=== PATIENT | female | born 1940 | race Asian ===

== ENCOUNTER 2018-11-20 17:52 | Inpatient (IN) | payer MEDICARE, MEDICAID ==
--- NOTE | 2018-11-20 18:02 | ED Physician Chart ---
ED Chief Complaint/HPI - Patient Information Date Seen:: 11/20/18 Time Seen:: 17:40 Chief Complaint:: Weakness History of Present Illness:: onset x 3 days of poor appetite, weakness, and failure to thrive; no report of trauma, H/As, neck pain, cough, C/P, SOB, Abd. Pain, N/V/D/C, fever, chills, or urinary s/s Historian:: Patient, EMS Review:: Nurse's Note Reviewed, Old Chart Reviewed, EMS run form Reviewed <Gui Verdin - Last Filed: 11/20/18 18:59> - Patient Information Allergies:: Allergies Allergy/AdvReac Type Severity Reaction Status Date / Time No Known Allergies Allergy Verified 11/20/18 18:06 Vitals:: Vital Signs - 8 hr 11/20/18 18:07 Temp 98.6 F HR 101 RR 19 BP 184/79 O2 Sat % 97 <Eduardo Vela - Last Filed: 11/20/18 20:10> ED Review of Systems - Review of Systems General/Constitutional: No fever, No chills, No weight loss, Weakness, No diaphoresis, No edema, No loss of appetite Skin: No skin lesions, No rash, No bruising Head: No headache, No light-headedness Eyes: No loss of vision, No pain, No diplopia ENT: No earache, No nasal drainage, No sore throat, No tinnitus Neck: No neck pain, No swelling, No thyromegaly, No stiffness, No mass noted Cardio Vascular: No chest pain, No palpitations, No PND, No orthopnea, No edema Pulmonary: No SOB, No cough, No sputum, No wheezing GI: No nausea, No vomiting, No diarrhea, No pain, No melena, No hematochezia, No constipation, No hematemesis G/U: No dysuria, No frequency, No hematuria, No nacturia [employer]: No vaginal discharge, No abnormal vaginal bleed, No contraction Musculoskeletal: No bone or joint pain, No back pain, No muscle pain Endocrine: No polyuria, No polydipsia Psychiatric: Prior psych history, No depression, Anxiety, No suicidal ideation, No homicidal ideation, No auditory hallucination, No visual hallucination Hematopoietic: No bruising, No lymphadenopathy Allergic/Immuno: No urticaria, No angioedema Neurological: No syncope, No focal symptoms, No weakness, No paresthesia, No headache, No seizure, No dizziness, Confusion, No vertigo <Gui Verdin - Last Filed: 11/20/18 18:59> ED Past Medical History - Past Medical History Obtainable: Yes Past Medical History: HTN, CVA/TIA, Dyslipidemia, PUD/GERD, Seizures, Dementia Family History: HTN Social History: Non Smoker, No Alcohol, No Drug Use, , Care Facility Surgical History: None Psychiatricy History: Schizophrenia, Dementia Medication: Reviewed <Gui Verdin - Last Filed: 11/20/18 18:59> ED Physical Exam - Physical Examination General/Constitutional: Awake, Well-developed, well-nourished, Alert, No distress, GCS 15, Non-toxic appearing, Ambulatory Head: Atraumatic Eyes: Lids, conjuctiva normal, PERRL, EOMI Skin: Nl inspection, No rash, No skin lesions, No ecchymosis, Well hydrated, No lymphadenopathy ENMT: External ears, nose nl, TM canals nl, Nasal exam nl, Lips, teeth, gums nl , Oropharynx nl, Tonsils nl Neck: Nontender, Full ROM w/o pain, No JVD, No nuchal rigidity, No bruit, No mass, No stridor Respiratory: Nl effort/Exclusion, Clear to Auscultation, No Wheeze/Rhonchi/Rales Cardio Vascular: RRR, No murmur, gallop, rubs, NL S1 S2, Carotid/Femoral/Distal pulses equal bilaterally GI: No tenderness/rebounding/guarding, No organomegaly, No hernia, Normal BS's, Nondistended, No mass/bruits, No McBurney tenderness : No CVA tenderness Extremities: No tenderness or effusion, Full ROM, normal strength in all extremities, No edema, Normal digits & nails Neuro/Psych: Alert/oriented, DTR's symmetric, Normal sensory exam, Normal motor strength, Judgement/insight normal, Mood normal, Normal gait, No focal deficits Misc: Normal back, No paraspinal tenderness <Gui Verdin - Last Filed: 11/20/18 18:59> ED Labs/Radiology/EKG Results - Lab Results Comments:: Reviewed - Radiology Results Comments:: CXR: NAD - EKG Interpretations EKG Time:: 18:15 Rate & Rhythm: 90; NSR Comments:: non-specific st-t changes <Gui Verdin - Last Filed: 11/20/18 18:59> - Lab Results Results: Laboratory Tests 11/20/18 11/20/18 11/20/18 18:15 18:15 18:15 PT 8.9 L INR < 0.50 L PTT (Actin FS) 23.1 L Sodium 140 Potassium 3.3 L Chloride 104 Carbon Dioxide 24.6 Anion Gap 14.7 BUN 25 Creatinine 0.7 Est GFR ( Amer) TNP Est GFR (Non-Af Amer) TNP BUN/Creatinine Ratio 35.7 Glucose 140 H Whole Bld Lactic Acid 2.20 H* Calcium 9.8 Total Bilirubin 0.5 AST 15 ALT 14 Alkaline Phosphatase 111 H Creatine Kinase 27 L Troponin I < 0.01 L Total Protein 7.3 Albumin 4.2 Globulin 3.1 Albumin/Globulin Ratio 1.4 Amylase 62 Lipase 30 Comments:: Abnormal Lab Results 11/20/18 11/20/18 11/20/18 18:15 18:15 18:15 PT 8.9 L INR < 0.50 L PTT (Actin FS) 23.1 L Sodium 140 Potassium 3.3 L Chloride 104 Carbon Dioxide 24.6 Anion Gap 14.7 BUN 25 Creatinine 0.7 Est GFR ( Amer) TNP Est GFR (Non-Af Amer) TNP BUN/Creatinine Ratio 35.7 Glucose 140 H Whole Bld Lactic Acid 2.20 H* Calcium 9.8 Total Bilirubin 0.5 AST 15 ALT 14 Alkaline Phosphatase 111 H Creatine Kinase 27 L Troponin I < 0.01 L Total Protein 7.3 Albumin 4.2 Globulin 3.1 Albumin/Globulin Ratio 1.4 Amylase 62 Lipase 30 - EKG Interpretations [place]: left axis no ectopy noted <Eduardo Vela - Last Filed: 11/20/18 20:10> ED Assessment - Assessment General Assessment: failure to thrive <Eduardo Vela - Last Filed: 11/20/18 20:10> ED Septic Shock - . Is Septic Shock (SBP<90, OR Lactate>4 mmol\L) present?: No <Gui Verdin - Last Filed: 11/20/18 18:59> - <6hrs of presentation: Vital Signs: Vital Signs - 8 hr 11/20/18 18:07 Temp 98.6 F HR 101 RR 19 BP 184/79 O2 Sat % 97 <Eduardo Vela - Last Filed: 11/20/18 20:10> ED Reassessment (Disposition) - Reassessment Reassessment Condition:: Improved - Diagnosis Diagnosis:: Failure to Thrive; Anorexia; Poor Oral Intake; Weakness; Elevated Lactic Acid; Lactic Acidosis; Hypokalemia; Hyperglycemia <Gui Verdin - Last Filed: 11/20/18 18:59> - Diagnosis Diagnosis:: failure to thrive elevated lactic acid hypokalemia - Patient Disposition Discharge/Transfer:: Acute Care w/in this hosp Admitting Medical Physician:: Austin Church Condition at Disposition:: Improved <Eduardo Vela - Last Filed: 11/20/18 20:10>
[2018-11-20] MEDS ORDERED: Sodium Chloride 0.9% 1,000 ML IV ONE ×2 (18:07→23:15)
[2018-11-20 18:53] LABS: ALB/GLOB RATIO 1.4 (1.0-1.8); ALBUMIN 4.2 gm/dL (3.7-5.3); ALKALINE PHOSPHATASE 111 U/L (34-104); AMYLASE SERUM 62 U/L (29-103); ANION GAP 14.7 (7.0-16.0); BILIRUBIN,TOTAL 0.5 mg/dL (0.3-1.0); BUN - UREA NITROGEN 25 mg/dL (7-25); CALCIUM SERUM 9.8 mg/dL (8.6-10.3); CARBON DIOXIDE 24.6 mEq/L (21.0-31.0); CHLORIDE 104 mEq/L (98-107); CREATININE - SERUM 0.7 mg/dL (0.6-1.2); CREATININE KINASE 27 U/L (30-223); GLUCOSE 140 mg/dL (70-105); LIPASE 30 U/L (11-82); POTASSIUM SERUM 3.3 mEq/L (3.5-5.1); SGOT 15 U/L (13-39); SGPT/ALT 14 U/L (7-52); SODIUM SERUM 140 mEq/L (136-145); TOTAL PROTEIN,SERUM 7.3 gm/dL (6.0-8.3)
[2018-11-20] MEDS ORDERED: Potassium Chloride 20 mEq ER Tab PO ONE ×2 (19:01→19:21)
[2018-11-20 19:05] LABS: INR < 0.50 (0.5-1.4)
[2018-11-20] MEDS ORDERED: Potassium Chloride Elixir 20 mEq /15 mL UDC PO ONE (19:25)
[2018-11-20] MEDS ORDERED: Potassium Chloride Elixir 20 mEq /15 mL UDC ONE (19:26)
[2018-11-20] MEDS ORDERED: cefTRIAXone 1 GM in Sodium Chloride 0.9% 50 ML IV SCH (21:00)
[2018-11-20 22:06] LABS: HEMATOCRIT 29.4 % (41.0-60); HEMOGLOBIN 10.9 gm/dL (12-16); MEAN CELL VOLUME 96.5 fl (81-100); MEAN CORPUSCULAR HEMOGLOBIN 35.7 pg (27.0-31.0); RED BLOOD COUNT 3.04 Mil/cmm (3.80-5.20); RED CELL DISTRIBUTION WIDTH 16.4 % (11.5-20.0); WHITE BLOOD COUNT 7.2 Th/cmm (4.8-10.8)
[2018-11-20 22:07] LABS: % LYMPHOCYTES 22.3 % (20.0-50.0); % NEUTROPHILS 70.2 % (40.0-80.0); PLATELET COUNT 345 Th/cmm (150-400)
[2018-11-20 22:09] LABS: % BASOPHILS 0.5 % (0.0-2.0); % EOSINOPHILS 2.1 % (0.0-5.0); % MONOCYTES 4.9 % (2.0-10.0); LYMPHOCYTE ABSOLUTE 1.6 Th/cmm (1.5-3.0); MONOCYTE ABSOLUTE 0.4 Th/cmm (0.3-1.0)
[2018-11-20 22:10] LABS: EOSINOPHILE ABSOLUTE 0.1 Th/cmm (0.1-0.4)
[2018-11-20] MEDS: cefTRIAXone 1 GM in Sodium Chloride 0.9% 50 ML IV SCH (22:40)
[2018-11-20] MEDS: Sodium Chloride 0.45% 1,000 ML IV SCH (22:41)
[2018-11-20 23:28] VITALS: BP 148/98
[2018-11-21 05:25] LABS: URINE SOURCE CATH
[2018-11-21 05:45] LABS: URINE BILIRUBIN NEGATIVE (NEGATIVE); URINE BLOOD NEGATIVE (NEGATIVE); URINE GLUCOSE (UA) NEGATIVE (NEGATIVE); URINE KETONE NEGATIVE (NEGATIVE); URINE LEUKOCYTE ESTERASE NEGATIVE (NEGATIVE); URINE NITRATE NEGATIVE (NEGATIVE); URINE PH 6.5 (4.6 - 8.0); URINE PROTEIN NEGATIVE (NEGATIVE); URINE UROBILINOGEN 0.2 E.U./dL (0.2 - 1.0)
[2018-11-21 05:55] LABS: URINE CLARITY CLEAR (CLEAR); URINE COLOR YELLOW; URINE MICROSCOPIC INDICATED? NO
[2018-11-21] MEDS ORDERED: Non-Formulary Item 1 EA (Glucagon,Human Recombinant [Glucagon Emergency Kit] 1 MG) IJ PRN (08:34)
[2018-11-21] MEDS ORDERED: Magnesium Hydroxide (MOM) 30 mL UDC PO PRN (08:34)
[2018-11-21] MEDS: Sodium Chloride 0.45% 1,000 ML IV SCH ×2 (08:44→17:57)
[2018-11-21] MEDS ORDERED: Non-Formulary Item 1 EA (Acetaminophen [Tylenol] 650 MG) PO SCH (09:00)
[2018-11-21] MEDS ORDERED: GLUCAGON HCl 1 MG KIT IM PRN (09:03)
--- NOTE | 2018-11-21 09:23 | Diagnostic Imaging Report ---
CHEST X-RAY: AP view INDICATION: pain COMPARISON: None FINDINGS: Small left effusion is seen with left basal atelectasis versus infiltrate. Suboptimal lung volumes are noted. Chronic changes are noted. Heart size normal. Atherosclerosis is noted. Degenerative changes of the spine are noted. IMPRESSION: Small left effusion with left basal atelectasis versus focal infiltrate. Atherosclerotic vascular disease.
--- NOTE | 2018-11-21 09:37 | History & Physical ---
ADMIT DATE: 11/21/2018 CHIEF COMPLAINT: Weakness and failure to thrive. HISTORY OF PRESENT ILLNESS: This is a 78-year-old female who was admitted from a fpc facility to [facility] Emergency Room due to weakness and failure to thrive. From Emergency Room, the patient was noted to have elevated acidosis level and also with urinary tract infection, hence the patient was admitted to Med/Surg Unit for further management. REVIEW OF SYSTEMS: GENERAL: This is a 78-year-old female. No fever, positive weakness. HEAD: No headache. No dizziness. EYES: No eye pain or blurring of vision. NECK: No neck pain or nuchal rigidity. CHEST: No chest pain or palpitation. PULMONARY: No coughing. No shortness of breath. GASTROINTESTINAL: No abdominal pain, no constipation, no diarrhea. MUSCULOSKELETAL: No joint pain. No muscle pain. SOCIAL HISTORY: The patient lives in a fpc facility prior to hospitalization. PAST MEDICAL HISTORY: Includes diabetes, osteoarthritis and dementia. FAMILY HISTORY: Unremarkable. PAST SURGICAL HISTORY: Unremarkable. PHYSICAL EXAMINATION: VITAL SIGNS: Temperature 96.6, heart rate 61, blood pressure 116/69, respirations 18, 97% on room air. GENERAL: This is a 78-year-old female that appears as stated in no acute distress. HEENT: Head is atraumatic and normocephalic. Eyes: Bilateral conjunctivae are clear. Bilateral pupils are equally round and reactive. NECK: Supple. No JVD. CARDIOVASCULAR: S1 and S2, without murmur. PULMONARY: Clear to auscultation. GASTROINTESTINAL: Soft and nontender without guarding. Positive bowel sounds. MUSCULOSKELETAL: No clubbing. No cyanosis noted. ASSESSMENT: 1. Failure to thrive. 2. Lactic acidosis. 3. Urinary tract infection. 4. Diabetes. PLAN: We will admit the patient to Med/Surg Unit. We will do medication reconciliation accordingly. We will do a swallow evaluation. We will consult with ID doctor and the neurologist. Treatment plans were discussed with the patient's nurse. Treatment plans were discussed with Dr. Church. JOB# [id number]
[2018-11-21] MEDS: Aspirin 81mg Chewable Tab PO SCH (09:40)
[2018-11-21] MEDS: INSULIN LISPRO SLIDING SCALE 100 UNITS/ML UNIT SUBQ SCH (09:44)
[2018-11-21] MEDS: cefTRIAXone 1 GM in Sodium Chloride 0.9% 50 ML IV SCH (20:14)
[2018-11-22] MEDS: Sodium Chloride 0.45% 1,000 ML IV SCH ×3 (03:57→23:18)
[2018-11-22] MEDS: Aspirin 81mg Chewable Tab PO SCH ×2 (09:04→09:59)
[2018-11-22] MEDS: INSULIN LISPRO SLIDING SCALE 100 UNITS/ML UNIT SUBQ SCH (09:05)
--- NOTE | 2018-11-22 10:06 | Internal Medicine Prog Note ---
Internal Medicine Subjective - Subjective Patient seen and examined:: with staff Patient is:: asleep, non-interactive, arousable, in bed Per staff patient has:: no adverse event, no episodes of fall Internal Medicine Objective - Results Result Diagrams: 11/20/18 18:15 11/20/18 18:15 Recent Labs: Laboratory Last Values WBC 7.2 Th/cmm (4.8-10.8) 11/20/18 18:15 RBC 3.04 Mil/cmm (3.80-5.20) L 11/20/18 18:15 Hgb 10.9 gm/dL (12-16) L 11/20/18 18:15 Hct 29.4 % (41.0-60) L 11/20/18 18:15 MCV 96.5 fl (81-100) 11/20/18 18:15 MCH 35.7 pg (27.0-31.0) H 11/20/18 18:15 MCHC Differential 37.0 pg (28.0-36.0) H 11/20/18 18:15 RDW 16.4 % (11.5-20.0) 11/20/18 18:15 Plt Count 345 Th/cmm (150-400) 11/20/18 18:15 MPV 7.7 fl 11/20/18 18:15 Neutrophils % 70.2 % (40.0-80.0) 11/20/18 18:15 Lymphocytes % 22.3 % (20.0-50.0) 11/20/18 18:15 Monocytes % 4.9 % (2.0-10.0) 11/20/18 18:15 Eosinophils % 2.1 % (0.0-5.0) 11/20/18 18:15 Basophils % 0.5 % (0.0-2.0) 11/20/18 18:15 PT 8.9 SECONDS (9.5-11.5) L 11/20/18 18:15 INR < 0.50 (0.5-1.4) L 11/20/18 18:15 PTT (Actin FS) 23.1 SECONDS (26.0-38.0) L 11/20/18 18:15 Sodium 140 mEq/L (136-145) 11/20/18 18:15 Potassium 3.3 mEq/L (3.5-5.1) L 11/20/18 18:15 Chloride 104 mEq/L (98-107) 11/20/18 18:15 Carbon Dioxide 24.6 mEq/L (21.0-31.0) 11/20/18 18:15 Anion Gap 14.7 (7.0-16.0) 11/20/18 18:15 BUN 25 mg/dL (7-25) 11/20/18 18:15 Creatinine 0.7 mg/dL (0.6-1.2) 11/20/18 18:15 Est GFR ( Amer) TNP 11/20/18 18:15 Est GFR (Non-Af Amer) TNP 11/20/18 18:15 BUN/Creatinine Ratio 35.7 11/20/18 18:15 Glucose 140 mg/dL (70-105) H 11/20/18 18:15 POC Glucose 123 MG/DL (70 - 105) H 11/22/18 07:41 Whole Bld Lactic Acid 3.05 mmol/L (0.60-1.99) H* 11/20/18 21:11 Calcium 9.8 mg/dL (8.6-10.3) 11/20/18 18:15 Total Bilirubin 0.5 mg/dL (0.3-1.0) 11/20/18 18:15 AST 15 U/L (13-39) 11/20/18 18:15 ALT 14 U/L (7-52) 11/20/18 18:15 Alkaline Phosphatase 111 U/L (34-104) H 11/20/18 18:15 Creatine Kinase 27 U/L (30-223) L 11/20/18 18:15 Troponin I < 0.01 ng/mL (0.01-0.05) L 11/20/18 18:15 Total Protein 7.3 gm/dL (6.0-8.3) 11/20/18 18:15 Albumin 4.2 gm/dL (3.7-5.3) 11/20/18 18:15 Globulin 3.1 gm/dL 11/20/18 18:15 Albumin/Globulin Ratio 1.4 (1.0-1.8) 11/20/18 18:15 Amylase 62 U/L (29-103) 11/20/18 18:15 Lipase 30 U/L (11-82) 11/20/18 18:15 Urine Source CATH 11/21/18 04:45 Urine Color YELLOW 11/21/18 04:45 Urine Clarity CLEAR (CLEAR) 11/21/18 04:45 Urine pH 6.5 (4.6 - 8.0) 11/21/18 04:45 Ur Specific [place] 1.010 (1.005-1.030) 11/21/18 04:45 Urine Protein NEGATIVE mg/dL (NEGATIVE) 11/21/18 04:45 Urine Glucose (UA) NEGATIVE mg/dL (NEGATIVE) 11/21/18 04:45 Urine Ketones NEGATIVE mg/dL (NEGATIVE) 11/21/18 04:45 Urine Blood NEGATIVE (NEGATIVE) 11/21/18 04:45 Urine Nitrate NEGATIVE (NEGATIVE) 11/21/18 04:45 Urine Bilirubin NEGATIVE (NEGATIVE) 11/21/18 04:45 Urine Urobilinogen 0.2 E.U./dL (0.2 - 1.0) 11/21/18 04:45 Ur Leukocyte Esterase NEGATIVE (NEGATIVE) 11/21/18 04:45 - Physical Exam Vitals and I&O: Vital Signs Temp 98 F 11/22/18 04:03 Pulse 78 11/22/18 04:03 Resp 18 11/22/18 04:03 BP 184/92 11/22/18 04:03 Pulse Ox 99 11/22/18 04:03 Intake & Output 11/21/18 11/22/18 11/22/18 18:59 06:59 18:59 Intake Total 3621.667 1200 Balance 3621.667 1200 Weight (lbs) 116 lb 116 lb Intake: Intake, IV Amount 2921.667 1050 Sodium Chloride 0.45% 1, 1928.206 6197 000 ml @ 100 mls/hr IV . Q10H [facility] Rx#:[id number] cefTRIAXone 1 gm In 50 Sodium Chloride 0.9% 50 ml @ 100 mls/hr IV DAILY@ 2100 [facility] Rx#:[id number] Oral 700 150 Other: # Voids 3 3 Weight Source Bedscale Bedscale Active Medications: Current Medications Acetaminophen (Tylenol) 650 mg PO DAILY [facility] Stop: 01/20/19 09:04 Last Admin: 11/22/18 09:59 Dose: Not Given Aspirin (Aspirin Chewable) 81 mg PO DAILY [facility] Stop: 01/20/19 08:59 Last Admin: 11/22/18 09:59 Dose: Not Given Bisacodyl (Dulcolax 10 Mg Supp) 10 mg RC DAILY PRN PRN Reason: IF MOM INEFFECTIVE Stop: 01/20/19 08:33 Docusate Sodium (Colace) 100 mg PO BID PRN PRN Reason: Constipation Stop: 01/20/19 08:33 Glucagon (Glucagen) 1 mg IM PRN PRN PRN Reason: HYPOGLYCEMIA Stop: 01/20/19 09:02 Sodium Chloride (Nacl 0.45%) 1,000 mls @ 100 mls/hr IV .Q10H [facility] Stop: 01/19/19 22:12 Last Admin: 11/22/18 03:57 Dose: 100 mls/hr Ceftriaxone Sodium 1 gm/ (Sodium Chloride) 50 mls @ 100 mls/hr IV DAILY@2100 [facility] Stop: 01/19/19 22:14 Last Infusion: 11/21/18 20:44 Dose: Infused Insulin Human Lispro (Humalog Insulin Sliding Scale) 0 units SUBQ DAILY [facility]; Protocol Stop: 01/20/19 08:59 Last Admin: 11/22/18 09:05 Dose: Not Given Magnesium Hydroxide (Milk Of Magnesia) 30 ml PO HS PRN PRN Reason: GI DISTRESS Stop: 01/20/19 08:33 Metformin HCl (Glucophage) 500 mg PO TID [facility] Stop: 01/20/19 08:59 Last Admin: 11/22/18 09:59 Dose: Not Given Valproate Sodium (Depakene) 250 mg PO DAILY [facility]; Protocol Stop: 01/20/19 08:59 Last Admin: 11/22/18 10:00 Dose: Not Given General: weak, NAD HEENT: NC/AT, other Neck: Supple, No JVD Lungs: CTAB Cardiovascular: RRR, Normal S1, Normal S2 Abdomen: soft, non-tender, tender Internal Medicine Assmt/Plan - Assessment Assessment: Weakness FTT DM R/O UTI - clean UA HTN CVA/TIA Dyslipidemia PUD/GERD Seizures Dementia Schizophrenia - Plan Plan: Continue current treatment plan. Monitor Labs.Continue current medications Continue to monitor VS Monitor Diet/Nutritional support. Pain Management. PT/OT prn Safety precaution, Fall precaution, frequent nursing round. Supportive care. Continue collaborating with consulting specialists, case management and nursing team. F/U CT Scan Head- pt refused previously F/U ID and Neurology recs. Disposition: possible discharge today. Nutritional Asmnt/Malnutr-PDOC - Dietary Evaluation Malnutrition Findings (Please click <Entered> for more info): Nutritional Asmnt/Malnutrition Start: 11/21/18 10: 06 Text: Status: Complete Freq: Protocol: Document 11/21/18 10:10 MMETHAN (Rec: 11/21/18 10:28 [id number] [email or web address] [email or web address]) Nutritional Asmnt/Malnutrition Patient General Information Nutritional Screening High Risk Consult Diagnosis Failure to thrive, elevated lactic acid, hypokalemia Pertinent Medical Hx/Surgical Hx diabetes, osteoarthritis, dementia Subjective Information Dietary Consult received for " No appetite to eat, diabetic". Patient was admitted from SNF due to weakness and failure to thrive. Primary language Cantonese. Patient refusing some meals, but ate breafkast today without difficulty, per RN note. In bed at time of visit; nutrition education not appropriate at this time. Current Diet Order/ Nutrition Support 60 gm [facility] Patient / S.O Not Indicated Pertinent Medications dulcolax, colace, glucagon, humalog, MOM, Metformin Pertinent Labs (11/20) K 3.3 Nutritional Hx/Data Height 5 ft 1 in Height (Calculated Centimeters) 154.9 Current Weight (lbs) 116 lb Weight (Calculated Kilograms) 52.6 Weight (Calculated Grams) 02576.7 [place] Body Weight 112 % [place] Body Weight 103 Body Mass Index (BMI) 21.9 Recent Weight Change No Weight Status Approriate GI Symptoms GI Symptoms None Difficult in: None Food Allergies No Cultural/Ethnic/P[employer]al Belief none indicated Usual diet at home unknown Skin Integrity/Comment: Heri 14, Bilateral lower buttocks black discoloration Current %PO Negligible < 25% Estimated Nutritional Goals BEE in Kcals: Using Current wt Calories/Kcals/Kg 52.7kg CBW Kcals Calculated ~1912-1931 kcal/day (25-30 kcal/kg) Protein: Using Current wt Protein g/k-1.2 gm/kg Protein Calculated ~50-65 gm/day Fluid: ml ~2169-3268 ml/day (1 ml/kcal) Nutritional Problem 1. Problem Problem Inadequate oral intake related to Etiology possible poor appetite, refusing meals aeb Signs/Symptoms: PO <25% of meals Intervention/Recommendation Comments 1. Continue 60 gm CCHO diet as tolerated by patient. 2. Encourage oral intake of meals. 3. Add Glucerna TID to supplement calories/protein due to FTT. Expected Outcomes/Goals Expected Outcomes/Goals Oral intake >75% if meals, weight stable, nutrition related labs WNL F/U MR 11/24-
--- NOTE | 2018-11-22 17:01 | Consultation ---
DATE OF CONSULTATION: 11/22/2018 INFECTIOUS DISEASE CONSULTATION REFERRING PHYSICIAN: Dr. Church. REASON FOR CONSULTATION: Lactic acidosis. HISTORY OF PRESENT ILLNESS: The patient is a 78-year-old female with a past medical history of dementia, hypertension, CVA, dyslipidemia, peptic ulcer disease, GERD, seizure disorder, brought in from nursing facility for poor appetite of 3 days. It was associated with generalized weakness and failure to thrive. On initial evaluation, the patient's temperature was 98.6 degrees Fahrenheit and WBC count was 7200. Lactic acid was 2.2. Sepsis workup was performed and chest x-ray showed small left effusion with left basilar atelectasis versus focal infiltrate. The patient was started on IV fluid. ID consult was called for the antibiotic management. PAST MEDICAL HISTORY: As mentioned above, dementia, hyperlipidemia, diabetes mellitus type 2, hypertension, osteoarthritis, seizure disorder. SOCIAL HISTORY: The patient lives in a nursing facility. No history of smoking, alcohol or drug use. FAMILY HISTORY: Unremarkable. PAST SURGICAL HISTORY: Unknown. IMMUNIZATION STATUS: Unknown. REVIEW OF SYSTEMS: The patient unable to give any appropriate history. Otherwise, she says she is fine. GENERAL: The patient has no fever, no chills. HEENT: No diplopia, no photophobia, no sore throat. RESPIRATORY: No cough, no shortness of breath. CARDIOVASCULAR: No chest pain or palpitation. GASTROINTESTINAL: No nausea, no vomiting, no diarrhea, no constipation. GENITOURINARY: No dysuria. NEUROLOGICAL: No headache, no dizziness, no focal weakness. ALLERGIES: NKDA. MEDICATIONS: Per medication reconciliation sheet. Antibiotic taylor, the patient is receiving Rocephin. PHYSICAL EXAMINATION: CURRENT VITAL SIGNS: Shows temperature is 96.9, pulse 82, respiration 18, blood pressure 167/79, oxygen saturation 97%. GENERAL: The patient is comfortable, lying in bed, not in acute distress. HEENT: Head is normocephalic, atraumatic. Oral cavity moist, pink tongue. EYES: No pallor, no icterus. Pupils PERRLA, EOMI. NECK: Supple, no JVD, no carotid bruit. Trachea in midline. CHEST: Bilateral breath sounds. No crackles or wheezing. Decreased breath sounds. HEART: S1, S2 within normal limits. Regular rhythm. No murmur, no gallop. ABDOMEN: Soft, nontender, nondistended. Bowel sounds present. EXTREMITIES: No cyanosis, no clubbing, no edema. NEUROLOGIC: Alert, awake, oriented x 3. No focal deficits. LABORATORY DATA: WBC count 7200, hemoglobin 10.9, hematocrit 29.4, platelets are 345,000, neutrophils 70%. Sodium is 140, potassium 3.3, chloride 104, bicarbonate is 25, BUN is 25, creatinine 0.7, glucose is 140. Urinalysis, negative nitrite, negative leukoesterase. INR is less than 0.5. Blood culture 2 sets are negative. MRSA screen is negative. Chest x-ray shows small left pleural effusion with left basilar atelectasis versus focal infiltrate. IMPRESSION: 1. Lactic acidosis, most likely metformin is issue and dehydration because of loss of appetite. 2. Left lower lobe pneumonia. 3. Dementia. 4. Hypertension. 5. Hyperlipidemia. 6. Mild anemia. RECOMMENDATIONS: Continue IV fluid support. Discontinue metformin in view of the lactic acidosis. Continue insulin coverage. Continue Rocephin. Thank you, Dr. Church for involving me in taking care of this patient. JOB# [id number]
[2018-11-22] MEDS: cefTRIAXone 1 GM in Sodium Chloride 0.9% 50 ML IV SCH (21:22)
[2018-11-23 05:13] LABS: ANION GAP 11.5 (7.0-16.0); BUN - UREA NITROGEN 14 mg/dL (7-25); CALCIUM SERUM 8.8 mg/dL (8.6-10.3); CARBON DIOXIDE 24.7 mEq/L (21.0-31.0); CHLORIDE 106 mEq/L (98-107); CREATININE - SERUM 0.6 mg/dL (0.6-1.2); GLUCOSE 142 mg/dL (70-105); POTASSIUM SERUM 3.2 mEq/L (3.5-5.1); SODIUM SERUM 139 mEq/L (136-145)
[2018-11-23] MEDS: INSULIN LISPRO SLIDING SCALE 100 UNITS/ML UNIT SUBQ SCH (08:18)
[2018-11-23] MEDS: Aspirin 81mg Chewable Tab PO SCH (08:18)
[2018-11-23] MEDS ORDERED: Potassium Chloride 20 mEq ER Tab PO ONE (08:48)
[2018-11-23] MEDS: Sodium Chloride 0.45% 1,000 ML IV SCH (09:29)
--- NOTE | 2018-11-23 09:55 | Diagnostic Imaging Report ---
CHEST X-RAY: AP view INDICATION: Pneumonia COMPARISON: 11/20/2018 FINDINGS: Faint left basal density is noted. Heart size normal. Atherosclerosis is noted. IMPRESSION: Faint left basal density, improved since prior exam which may represent improving infiltrate. Atherosclerotic vascular disease.
--- NOTE | 2018-11-23 11:11 | Internal Medicine Prog Note ---
Internal Medicine Subjective - Subjective Service Date: 11/23/18 Patient seen and examined:: with staff Patient is:: asleep, non-interactive, arousable, in bed Patient Complaints of:: other (loss of appetite.) Per staff patient has:: no adverse event, no episodes of fall Internal Medicine Objective - Results Result Diagrams: 11/20/18 18:15 11/23/18 04:45 Recent Labs: Laboratory Last Values WBC 7.2 Th/cmm (4.8-10.8) 11/20/18 18:15 RBC 3.04 Mil/cmm (3.80-5.20) L 11/20/18 18:15 Hgb 10.9 gm/dL (12-16) L 11/20/18 18:15 Hct 29.4 % (41.0-60) L 11/20/18 18:15 MCV 96.5 fl (81-100) 11/20/18 18:15 MCH 35.7 pg (27.0-31.0) H 11/20/18 18:15 MCHC Differential 37.0 pg (28.0-36.0) H 11/20/18 18:15 RDW 16.4 % (11.5-20.0) 11/20/18 18:15 Plt Count 345 Th/cmm (150-400) 11/20/18 18:15 MPV 7.7 fl 11/20/18 18:15 Neutrophils % 70.2 % (40.0-80.0) 11/20/18 18:15 Lymphocytes % 22.3 % (20.0-50.0) 11/20/18 18:15 Monocytes % 4.9 % (2.0-10.0) 11/20/18 18:15 Eosinophils % 2.1 % (0.0-5.0) 11/20/18 18:15 Basophils % 0.5 % (0.0-2.0) 11/20/18 18:15 PT 8.9 SECONDS (9.5-11.5) L 11/20/18 18:15 INR < 0.50 (0.5-1.4) L 11/20/18 18:15 PTT (Actin FS) 23.1 SECONDS (26.0-38.0) L 11/20/18 18:15 Sodium 139 mEq/L (136-145) 11/23/18 04:45 Potassium 3.2 mEq/L (3.5-5.1) L 11/23/18 04:45 Chloride 106 mEq/L (98-107) 11/23/18 04:45 Carbon Dioxide 24.7 mEq/L (21.0-31.0) 11/23/18 04:45 Anion Gap 11.5 (7.0-16.0) 11/23/18 04:45 BUN 14 mg/dL (7-25) 11/23/18 04:45 Creatinine 0.6 mg/dL (0.6-1.2) 11/23/18 04:45 Est GFR ( Amer) TNP 11/23/18 04:45 Est GFR (Non-Af Amer) TNP 11/23/18 04:45 BUN/Creatinine Ratio 23.3 11/23/18 04:45 Glucose 142 mg/dL (70-105) H 11/23/18 04:45 POC Glucose 123 MG/DL (70 - 105) H 11/22/18 07:41 Whole Bld Lactic Acid 0.71 mmol/L (0.60-1.99) 11/23/18 04:45 Calcium 8.8 mg/dL (8.6-10.3) 11/23/18 04:45 Total Bilirubin 0.5 mg/dL (0.3-1.0) 11/20/18 18:15 AST 15 U/L (13-39) 11/20/18 18:15 ALT 14 U/L (7-52) 11/20/18 18:15 Alkaline Phosphatase 111 U/L (34-104) H 11/20/18 18:15 Creatine Kinase 27 U/L (30-223) L 11/20/18 18:15 Troponin I < 0.01 ng/mL (0.01-0.05) L 11/20/18 18:15 Total Protein 7.3 gm/dL (6.0-8.3) 11/20/18 18:15 Albumin 4.2 gm/dL (3.7-5.3) 11/20/18 18:15 Globulin 3.1 gm/dL 11/20/18 18:15 Albumin/Globulin Ratio 1.4 (1.0-1.8) 11/20/18 18:15 Amylase 62 U/L (29-103) 11/20/18 18:15 Lipase 30 U/L (11-82) 11/20/18 18:15 Urine Source CATH 11/21/18 04:45 Urine Color YELLOW 11/21/18 04:45 Urine Clarity CLEAR (CLEAR) 11/21/18 04:45 Urine pH 6.5 (4.6 - 8.0) 11/21/18 04:45 Ur Specific [place] 1.010 (1.005-1.030) 11/21/18 04:45 Urine Protein NEGATIVE mg/dL (NEGATIVE) 11/21/18 04:45 Urine Glucose (UA) NEGATIVE mg/dL (NEGATIVE) 11/21/18 04:45 Urine Ketones NEGATIVE mg/dL (NEGATIVE) 11/21/18 04:45 Urine Blood NEGATIVE (NEGATIVE) 11/21/18 04:45 Urine Nitrate NEGATIVE (NEGATIVE) 11/21/18 04:45 Urine Bilirubin NEGATIVE (NEGATIVE) 11/21/18 04:45 Urine Urobilinogen 0.2 E.U./dL (0.2 - 1.0) 11/21/18 04:45 Ur Leukocyte Esterase NEGATIVE (NEGATIVE) 11/21/18 04:45 - Physical Exam Vitals and I&O: Vital Signs Temp 97.8 F 11/23/18 08:00 Pulse 74 11/23/18 08:17 Resp 18 11/23/18 08:00 BP 188/74 11/23/18 08:17 Pulse Ox 98 11/23/18 08:00 Intake & Output 11/22/18 11/23/18 11/23/18 18:59 06:59 18:59 Intake Total 1445 1280 1000 Balance 1445 1280 1000 Weight (lbs) 52.617 kg 52.617 kg Intake: Intake, IV Amount 945 1040 1000 Sodium Chloride 0.45% 1, 371 628 8173 000 ml @ 100 mls/hr IV . Q10H [facility] Rx#:[id number] cefTRIAXone 1 gm In 50 Sodium Chloride 0.9% 50 ml @ 100 mls/hr IV DAILY@ 2100 [facility] Rx#:[id number] Oral 500 240 Other: # Voids 4 3 # Bowel Movements 3 Stool Characteristics Soft Weight Source Bedscale Bedscale Active Medications: Current Medications Acetaminophen (Tylenol) 650 mg PO DAILY [facility] Stop: 01/20/19 09:04 Last Admin: 11/23/18 08:17 Dose: 650 mg Amlodipine Besylate (Norvasc) 5 mg PO DAILY COUNTS INCLUDE 234 BEDS AT THE [facility] Stop: 01/21/19 10:14 Last Admin: 11/23/18 08:17 Dose: 5 mg Aspirin (Aspirin Chewable) 81 mg PO DAILY COUNTS INCLUDE 234 BEDS AT THE [facility] Stop: 01/20/19 08:59 Last Admin: 11/23/18 08:18 Dose: 81 mg Bisacodyl (Dulcolax 10 Mg Supp) 10 mg RC DAILY PRN PRN Reason: IF MOM INEFFECTIVE Stop: 01/20/19 08:33 Docusate Sodium (Colace) 100 mg PO BID PRN PRN Reason: Constipation Stop: 01/20/19 08:33 Glucagon (Glucagen) 1 mg IM PRN PRN PRN Reason: HYPOGLYCEMIA Stop: 01/20/19 09:02 Sodium Chloride (Nacl 0.45%) 1,000 mls @ 100 mls/hr IV .Q10H COUNTS INCLUDE 234 BEDS AT THE [facility] Stop: 01/19/19 22:12 Last Admin: 11/23/18 09:29 Dose: 100 mls/hr Ceftriaxone Sodium 1 gm/ (Sodium Chloride) 50 mls @ 100 mls/hr IV DAILY@2100 COUNTS INCLUDE 234 BEDS AT THE [facility] Stop: 01/19/19 22:14 Last Infusion: 11/22/18 21:52 Dose: Infused Insulin Human Lispro (Humalog Insulin Sliding Scale) 0 units SUBQ DAILY COUNTS INCLUDE 234 BEDS AT THE [facility]; Protocol Stop: 01/20/19 08:59 Last Admin: 11/23/18 08:18 Dose: Not Given Magnesium Hydroxide (Milk Of Magnesia) 30 ml PO HS PRN PRN Reason: GI DISTRESS Stop: 01/20/19 08:33 Valproate Sodium (Depakene) 250 mg PO DAILY COUNTS INCLUDE 234 BEDS AT THE [facility]; Protocol Stop: 01/20/19 08:59 Last Admin: 11/23/18 08:18 Dose: 250 mg Physical Exam: patient has loss of appetite, remains very confused. General: weak, demented, NAD HEENT: NC/AT, other Neck: Supple, No JVD Lungs: CTAB Cardiovascular: RRR, Normal S1, Normal S2 Abdomen: soft, non-tender, tender Extremities: clear Neurological: no change Internal Medicine Assmt/Plan - Assessment Assessment: Loss of appetite. Lactic acidosis. Left lower lobe pneumonia. Dementia. Hypertension. Hyperlipidemia. Mild Anemia. - Plan Plan: Continuation of care. Monitor Labs- CBC, CMP, Monitor Hemoglobin levels. Continue present meds as directed. Monitor vitals, continue B/P meds as directed. Accu-check daily, Continue Insulin coverage. Respiratory treatments and Pulmonary support prn. Supplemental Oxygen prn. Aspiration precaution. Deep suctioning prn. Monitor Diet/Nutritional support. Monitor mental status progression. Monitor behavioral health status. Pain Management. Physical therapy. Occupational therapy. Safety precaution. Supportive care. Fall precaution, frequent nursing rounds, and as needed restraints to prevent fall. Continue collaborating with consulting specialists, case management and nursing team. Will Monitor patient and continue present care management. Nutritional Asmnt/Malnutr-PDOC - Dietary Evaluation Malnutrition Findings (Please click <Entered> for more info): Nutritional Asmnt/Malnutrition Start: 11/21/18 10: 06 Text: Status: Complete Freq: Protocol: Document 11/21/18 10:10 ARCHIE (Rec: 11/21/18 10:28 ARCHIE HWANG- [email or web address]) Nutritional Asmnt/Malnutrition Patient General Information Nutritional Screening High Risk Consult Diagnosis Failure to thrive, elevated lactic acid, hypokalemia Pertinent Medical Hx/Surgical Hx diabetes, osteoarthritis, dementia Subjective Information Dietary Consult received for " No appetite to eat, diabetic". Patient was admitted from SNF due to weakness and failure to thrive. Primary language Cantonese. Patient refusing some meals, but ate breafkast today without difficulty, per RN note. In bed at time of visit; nutrition education not appropriate at this time. Current Diet Order/ Nutrition Support 60 gm [facility] Patient / S.O Not Indicated Pertinent Medications dulcolax, colace, glucagon, humalog, MOM, Metformin Pertinent Labs (11/20) K 3.3 Nutritional Hx/Data Height 1.55 m Height (Calculated Centimeters) 154.9 Current Weight (lbs) 52.617 kg Weight (Calculated Kilograms) 52.6 Weight (Calculated Grams) 01144.7 [place] Body Weight 112 % [place] Body Weight 103 Body Mass Index (BMI) 21.9 Recent Weight Change No Weight Status Approriate GI Symptoms GI Symptoms None Difficult in: None Food Allergies No Cultural/Ethnic/Caodaism Belief none indicated Usual diet at home unknown Skin Integrity/Comment: Heri 14, Bilateral lower buttocks black discoloration Current %PO Negligible < 25% Estimated Nutritional Goals BEE in Kcals: Using Current wt Calories/Kcals/Kg 52.7kg CBW Kcals Calculated ~9516-5070 kcal/day (25-30 kcal/kg) Protein: Using Current wt Protein g/k-1.2 gm/kg Protein Calculated ~50-65 gm/day Fluid: ml ~8489-9097 ml/day (1 ml/kcal) Nutritional Problem 1. Problem Problem Inadequate oral intake related to Etiology possible poor appetite, refusing meals aeb Signs/Symptoms: PO <25% of meals Intervention/Recommendation Comments 1. Continue 60 gm CCHO diet as tolerated by patient. 2. Encourage oral intake of meals. 3. Add Glucerna TID to supplement calories/protein due to FTT. Expected Outcomes/Goals Expected Outcomes/Goals Oral intake >75% if meals, weight stable, nutrition related labs WNL F/U MR 11/24-
--- NOTE | 2018-11-23 17:37 | Infectious Disease Prog Note ---
Infectious Disease Subjective - Review of Systems Service Date: 11/23/18 Subjective: cc pneumonia/old cva hpi- cx negative on iv abx ros nofevr o.e vs chets vesicular abd soft ext pulse Vital Signs - 24 hr 11/22/18 11/22/18 11/23/18 18:43 20:00 00:00 Temp 97 F 96.8 F 97.2 F HR 80 77 73 RR 20 18 18 BP 161/75 144/66 172/85 O2 Sat % 97 96 97 11/23/18 11/23/18 11/23/18 04:00 08:00 08:17 Temp 97.0 F 97.8 F HR 88 74 74 RR 18 18 BP 171/71 188/74 188/74 O2 Sat % 95 98 11/23/18 11/23/18 11:40 15:00 Temp 97.2 F 97.9 F HR 73 71 RR 18 18 BP 182/74 144/84 O2 Sat % 99 97 Microbiology 11/20/18 18:30 Blood - Preliminary NO GROWTH AFTER 48 HOURS 11/20/18 18:15 Blood - Preliminary NO GROWTH AFTER 48 HOURS 11/21/18 04:45 Urine,Catheterized Urine Culture - Final 11/20/18 18:20 Nares - Final NO MRSA ISOLATED Laboratory Results - last 24 hr 11/23/18 11/23/18 04:45 04:45 Sodium 139 Potassium 3.2 L Chloride 106 Carbon Dioxide 24.7 Anion Gap 11.5 BUN 14 Creatinine 0.6 Est GFR ( Amer) TNP Est GFR (Non-Af Amer) TNP BUN/Creatinine Ratio 23.3 Glucose 142 H Whole Bld Lactic Acid 0.71 Calcium 8.8 Diagnoses TYPE 2 DIABETES MELLITUS WITHOUT COMPLICATIONS (11/20/18) ACIDOSIS (11/20/18) PNEUMONIA, UNSPECIFIED ORGANISM (11/20/18) URINARY TRACT INFECTION, SITE NOT SPECIFIED (11/20/18) WEAKNESS (11/20/18) ADULT FAILURE TO THRIVE (11/20/18) DO NOT RESUSCITATE (11/20/18) Current Medications Acetaminophen (Tylenol) 650 mg PO DAILY [facility] Stop: 01/20/19 09:04 Last Admin: 11/23/18 08:17 Dose: 650 mg Amlodipine Besylate (Norvasc) 5 mg PO DAILY [facility] Stop: 01/21/19 10:14 Last Admin: 11/23/18 08:17 Dose: 5 mg Aspirin (Aspirin Chewable) 81 mg PO DAILY [facility] Stop: 01/20/19 08:59 Last Admin: 11/23/18 08:18 Dose: 81 mg Bisacodyl (Dulcolax 10 Mg Supp) 10 mg RC DAILY PRN PRN Reason: IF MOM INEFFECTIVE Stop: 01/20/19 08:33 Docusate Sodium (Colace) 100 mg PO BID PRN PRN Reason: Constipation Stop: 01/20/19 08:33 Glucagon (Glucagen) 1 mg IM PRN PRN PRN Reason: HYPOGLYCEMIA Stop: 01/20/19 09:02 Sodium Chloride (Nacl 0.45%) 1,000 mls @ 100 mls/hr IV .Q10H [facility] Stop: 01/19/19 22:12 Last Admin: 11/23/18 09:29 Dose: 100 mls/hr Ceftriaxone Sodium 1 gm/ (Sodium Chloride) 50 mls @ 100 mls/hr IV DAILY@2100 [facility] Stop: 01/19/19 22:14 Last Infusion: 11/22/18 21:52 Dose: Infused Insulin Human Lispro (Humalog Insulin Sliding Scale) 0 units SUBQ DAILY [facility]; Protocol Stop: 01/20/19 08:59 Last Admin: 11/23/18 08:18 Dose: Not Given Magnesium Hydroxide (Milk Of Magnesia) 30 ml PO HS PRN PRN Reason: GI DISTRESS Stop: 01/20/19 08:33 Valproate Sodium (Depakene) 250 mg PO DAILY [facility]; Protocol Stop: 01/20/19 08:59 Last Admin: 11/23/18 08:18 Dose: 250 mg Infectious Disease Objective - Results Result Diagrams: 11/20/18 18:15 11/23/18 04:45 Recent Labs: Laboratory Last Values WBC 7.2 Th/cmm (4.8-10.8) 11/20/18 18:15 RBC 3.04 Mil/cmm (3.80-5.20) L 11/20/18 18:15 Hgb 10.9 gm/dL (12-16) L 11/20/18 18:15 Hct 29.4 % (41.0-60) L 11/20/18 18:15 MCV 96.5 fl (81-100) 11/20/18 18:15 MCH 35.7 pg (27.0-31.0) H 11/20/18 18:15 MCHC Differential 37.0 pg (28.0-36.0) H 11/20/18 18:15 RDW 16.4 % (11.5-20.0) 11/20/18 18:15 Plt Count 345 Th/cmm (150-400) 11/20/18 18:15 MPV 7.7 fl 11/20/18 18:15 Neutrophils % 70.2 % (40.0-80.0) 11/20/18 18:15 Lymphocytes % 22.3 % (20.0-50.0) 11/20/18 18:15 Monocytes % 4.9 % (2.0-10.0) 11/20/18 18:15 Eosinophils % 2.1 % (0.0-5.0) 11/20/18 18:15 Basophils % 0.5 % (0.0-2.0) 11/20/18 18:15 PT 8.9 SECONDS (9.5-11.5) L 11/20/18 18:15 INR < 0.50 (0.5-1.4) L 11/20/18 18:15 PTT (Actin FS) 23.1 SECONDS (26.0-38.0) L 11/20/18 18:15 Sodium 139 mEq/L (136-145) 11/23/18 04:45 Potassium 3.2 mEq/L (3.5-5.1) L 11/23/18 04:45 Chloride 106 mEq/L (98-107) 11/23/18 04:45 Carbon Dioxide 24.7 mEq/L (21.0-31.0) 11/23/18 04:45 Anion Gap 11.5 (7.0-16.0) 11/23/18 04:45 BUN 14 mg/dL (7-25) 11/23/18 04:45 Creatinine 0.6 mg/dL (0.6-1.2) 11/23/18 04:45 Est GFR ( Amer) TNP 11/23/18 04:45 Est GFR (Non-Af Amer) TNP 11/23/18 04:45 BUN/Creatinine Ratio 23.3 11/23/18 04:45 Glucose 142 mg/dL (70-105) H 11/23/18 04:45 POC Glucose 123 MG/DL (70 - 105) H 11/22/18 07:41 Whole Bld Lactic Acid 0.71 mmol/L (0.60-1.99) 11/23/18 04:45 Calcium 8.8 mg/dL (8.6-10.3) 11/23/18 04:45 Total Bilirubin 0.5 mg/dL (0.3-1.0) 11/20/18 18:15 AST 15 U/L (13-39) 11/20/18 18:15 ALT 14 U/L (7-52) 11/20/18 18:15 Alkaline Phosphatase 111 U/L (34-104) H 11/20/18 18:15 Creatine Kinase 27 U/L (30-223) L 11/20/18 18:15 Troponin I < 0.01 ng/mL (0.01-0.05) L 11/20/18 18:15 Total Protein 7.3 gm/dL (6.0-8.3) 11/20/18 18:15 Albumin 4.2 gm/dL (3.7-5.3) 11/20/18 18:15 Globulin 3.1 gm/dL 11/20/18 18:15 Albumin/Globulin Ratio 1.4 (1.0-1.8) 11/20/18 18:15 Amylase 62 U/L (29-103) 11/20/18 18:15 Lipase 30 U/L (11-82) 11/20/18 18:15 Urine Source CATH 11/21/18 04:45 Urine Color YELLOW 11/21/18 04:45 Urine Clarity CLEAR (CLEAR) 11/21/18 04:45 Urine pH 6.5 (4.6 - 8.0) 11/21/18 04:45 Ur Specific [place] 1.010 (1.005-1.030) 11/21/18 04:45 Urine Protein NEGATIVE mg/dL (NEGATIVE) 11/21/18 04:45 Urine Glucose (UA) NEGATIVE mg/dL (NEGATIVE) 11/21/18 04:45 Urine Ketones NEGATIVE mg/dL (NEGATIVE) 11/21/18 04:45 Urine Blood NEGATIVE (NEGATIVE) 11/21/18 04:45 Urine Nitrate NEGATIVE (NEGATIVE) 11/21/18 04:45 Urine Bilirubin NEGATIVE (NEGATIVE) 11/21/18 04:45 Urine Urobilinogen 0.2 E.U./dL (0.2 - 1.0) 11/21/18 04:45 Ur Leukocyte Esterase NEGATIVE (NEGATIVE) 11/21/18 04:45 - Physical Exam Vitals and I&O: Vital Signs Temp 97.9 F 11/23/18 15:00 Pulse 71 11/23/18 15:00 Resp 18 11/23/18 15:00 BP 144/84 11/23/18 15:00 Pulse Ox 97 11/23/18 15:00 Intake & Output 11/22/18 11/23/18 11/23/18 18:59 06:59 18:59 Intake Total 1445 1280 1000 Balance 1445 1280 1000 Weight (lbs) 52.617 kg 52.617 kg Intake: Intake, IV Amount 945 1040 1000 Sodium Chloride 0.45% 1, 631 655 2562 000 ml @ 100 mls/hr IV . Q10H [facility] Rx#:[id number] cefTRIAXone 1 gm In 50 Sodium Chloride 0.9% 50 ml @ 100 mls/hr IV DAILY@ 2100 [facility] Rx#:[id number] Oral 500 240 Other: # Voids 4 3 # Bowel Movements 3 Stool Characteristics Soft Weight Source Bedscale Bedscale Active Medications: Current Medications Acetaminophen (Tylenol) 650 mg PO DAILY [facility] Stop: 01/20/19 09:04 Last Admin: 11/23/18 08:17 Dose: 650 mg Amlodipine Besylate (Norvasc) 5 mg PO DAILY [facility] Stop: 01/21/19 10:14 Last Admin: 11/23/18 08:17 Dose: 5 mg Aspirin (Aspirin Chewable) 81 mg PO DAILY [facility] Stop: 01/20/19 08:59 Last Admin: 11/23/18 08:18 Dose: 81 mg Bisacodyl (Dulcolax 10 Mg Supp) 10 mg RC DAILY PRN PRN Reason: IF MOM INEFFECTIVE Stop: 01/20/19 08:33 Docusate Sodium (Colace) 100 mg PO BID PRN PRN Reason: Constipation Stop: 01/20/19 08:33 Glucagon (Glucagen) 1 mg IM PRN PRN PRN Reason: HYPOGLYCEMIA Stop: 01/20/19 09:02 Sodium Chloride (Nacl 0.45%) 1,000 mls @ 100 mls/hr IV .Q10H [facility] Stop: 01/19/19 22:12 Last Admin: 11/23/18 09:29 Dose: 100 mls/hr Ceftriaxone Sodium 1 gm/ (Sodium Chloride) 50 mls @ 100 mls/hr IV DAILY@2100 [facility] Stop: 01/19/19 22:14 Last Infusion: 11/22/18 21:52 Dose: Infused Insulin Human Lispro (Humalog Insulin Sliding Scale) 0 units SUBQ DAILY [facility]; Protocol Stop: 01/20/19 08:59 Last Admin: 11/23/18 08:18 Dose: Not Given Magnesium Hydroxide (Milk Of Magnesia) 30 ml PO HS PRN PRN Reason: GI DISTRESS Stop: 01/20/19 08:33 Valproate Sodium (Depakene) 250 mg PO DAILY [facility]; Protocol Stop: 01/20/19 08:59 Last Admin: 11/23/18 08:18 Dose: 250 mg Infectious Disease Assmt/Plan - Problem List Patient Problems: All Active Problems POOR ORAL INTAKE AND WEAKNESS (Acute) Nutritional Asmnt/Malnutr-PDOC - Dietary Evaluation Malnutrition Findings (Please click <Entered> for more info): Nutritional Asmnt/Malnutrition Start: 11/21/18 10: 06 Text: Status: Complete Freq: Protocol: Document 11/21/18 10:10 ARCHIE (Rec: 11/21/18 10:28 ARCHIE HWANG- FNS1) Nutritional Asmnt/Malnutrition Patient General Information Nutritional Screening High Risk Consult Diagnosis Failure to thrive, elevated lactic acid, hypokalemia Pertinent Medical Hx/Surgical Hx diabetes, osteoarthritis, dementia Subjective Information Dietary Consult received for " No appetite to eat, diabetic". Patient was admitted from SNF due to weakness and failure to thrive. Primary language Cantonese. Patient refusing some meals, but ate breafkast today without difficulty, per RN note. In bed at time of visit; nutrition education not appropriate at this time. Current Diet Order/ Nutrition Support 60 gm CCHO Patient / S.O Not Indicated Pertinent Medications dulcolax, colace, glucagon, humalog, MOM, Metformin Pertinent Labs (11/20) K 3.3 Nutritional Hx/Data Height 1.55 m Height (Calculated Centimeters) 154.9 Current Weight (lbs) 52.617 kg Weight (Calculated Kilograms) 52.6 Weight (Calculated Grams) 21151.7 [place] Body Weight 112 % [place] Body Weight 103 Body Mass Index (BMI) 21.9 Recent Weight Change No Weight Status Approriate GI Symptoms GI Symptoms None Difficult in: None Food Allergies No Cultural/Ethnic/Religion Belief none indicated Usual diet at home unknown Skin Integrity/Comment: Heri Walsh, Bilateral lower buttocks black discoloration Current %PO Negligible < 25% Estimated Nutritional Goals BEE in Kcals: Using Current wt Calories/Kcals/Kg 52.7kg CBW Kcals Calculated ~3417-5800 kcal/day (25-30 kcal/kg) Protein: Using Current wt Protein g/k-1.2 gm/kg Protein Calculated ~50-65 gm/day Fluid: ml ~2762-2045 ml/day (1 ml/kcal) Nutritional Problem 1. Problem Problem Inadequate oral intake related to Etiology possible poor appetite, refusing meals aeb Signs/Symptoms: PO <25% of meals Intervention/Recommendation Comments 1. Continue 60 gm CCHO diet as tolerated by patient. 2. Encourage oral intake of meals. 3. Add Glucerna TID to supplement calories/protein due to FTT. Expected Outcomes/Goals Expected Outcomes/Goals Oral intake >75% if meals, weight stable, nutrition related labs WNL F/U MR 11/24-
[2018-11-23] MEDS: cefTRIAXone 1 GM in Sodium Chloride 0.9% 50 ML IV SCH (21:10)
[2018-11-24] MEDS: Sodium Chloride 0.45% 1,000 ML IV SCH ×3 (07:52→16:06)
[2018-11-24] MEDS: Aspirin 81mg Chewable Tab PO SCH (08:28)
[2018-11-24] MEDS: INSULIN LISPRO SLIDING SCALE 100 UNITS/ML UNIT SUBQ SCH (08:28)
--- NOTE | 2018-11-24 15:49 | Internal Medicine Prog Note ---
Internal Medicine Subjective - Subjective Service Date: 11/24/18 Patient seen and examined:: with staff, chart reviewed Patient is:: awake, non-interactive, arousable, in bed Patient Complaints of:: other (loss of appetite.) Per staff patient has:: no adverse event, no episodes of fall Internal Medicine Objective - Results Result Diagrams: 11/20/18 18:15 11/23/18 04:45 Recent Labs: Laboratory Last Values WBC 7.2 Th/cmm (4.8-10.8) 11/20/18 18:15 RBC 3.04 Mil/cmm (3.80-5.20) L 11/20/18 18:15 Hgb 10.9 gm/dL (12-16) L 11/20/18 18:15 Hct 29.4 % (41.0-60) L 11/20/18 18:15 MCV 96.5 fl (81-100) 11/20/18 18:15 MCH 35.7 pg (27.0-31.0) H 11/20/18 18:15 MCHC Differential 37.0 pg (28.0-36.0) H 11/20/18 18:15 RDW 16.4 % (11.5-20.0) 11/20/18 18:15 Plt Count 345 Th/cmm (150-400) 11/20/18 18:15 MPV 7.7 fl 11/20/18 18:15 Neutrophils % 70.2 % (40.0-80.0) 11/20/18 18:15 Lymphocytes % 22.3 % (20.0-50.0) 11/20/18 18:15 Monocytes % 4.9 % (2.0-10.0) 11/20/18 18:15 Eosinophils % 2.1 % (0.0-5.0) 11/20/18 18:15 Basophils % 0.5 % (0.0-2.0) 11/20/18 18:15 PT 8.9 SECONDS (9.5-11.5) L 11/20/18 18:15 INR < 0.50 (0.5-1.4) L 11/20/18 18:15 PTT (Actin FS) 23.1 SECONDS (26.0-38.0) L 11/20/18 18:15 Sodium 139 mEq/L (136-145) 11/23/18 04:45 Potassium 3.2 mEq/L (3.5-5.1) L 11/23/18 04:45 Chloride 106 mEq/L (98-107) 11/23/18 04:45 Carbon Dioxide 24.7 mEq/L (21.0-31.0) 11/23/18 04:45 Anion Gap 11.5 (7.0-16.0) 11/23/18 04:45 BUN 14 mg/dL (7-25) 11/23/18 04:45 Creatinine 0.6 mg/dL (0.6-1.2) 11/23/18 04:45 Est GFR ( Amer) TNP 11/23/18 04:45 Est GFR (Non-Af Amer) TNP 11/23/18 04:45 BUN/Creatinine Ratio 23.3 11/23/18 04:45 Glucose 142 mg/dL (70-105) H 11/23/18 04:45 POC Glucose 123 MG/DL (70 - 105) H 11/22/18 07:41 Whole Bld Lactic Acid 0.71 mmol/L (0.60-1.99) 11/23/18 04:45 Calcium 8.8 mg/dL (8.6-10.3) 11/23/18 04:45 Total Bilirubin 0.5 mg/dL (0.3-1.0) 11/20/18 18:15 AST 15 U/L (13-39) 11/20/18 18:15 ALT 14 U/L (7-52) 11/20/18 18:15 Alkaline Phosphatase 111 U/L (34-104) H 11/20/18 18:15 Creatine Kinase 27 U/L (30-223) L 11/20/18 18:15 Troponin I < 0.01 ng/mL (0.01-0.05) L 11/20/18 18:15 Total Protein 7.3 gm/dL (6.0-8.3) 11/20/18 18:15 Albumin 4.2 gm/dL (3.7-5.3) 11/20/18 18:15 Globulin 3.1 gm/dL 11/20/18 18:15 Albumin/Globulin Ratio 1.4 (1.0-1.8) 11/20/18 18:15 Amylase 62 U/L (29-103) 11/20/18 18:15 Lipase 30 U/L (11-82) 11/20/18 18:15 Urine Source CATH 11/21/18 04:45 Urine Color YELLOW 11/21/18 04:45 Urine Clarity CLEAR (CLEAR) 11/21/18 04:45 Urine pH 6.5 (4.6 - 8.0) 11/21/18 04:45 Ur Specific [place] 1.010 (1.005-1.030) 11/21/18 04:45 Urine Protein NEGATIVE mg/dL (NEGATIVE) 11/21/18 04:45 Urine Glucose (UA) NEGATIVE mg/dL (NEGATIVE) 11/21/18 04:45 Urine Ketones NEGATIVE mg/dL (NEGATIVE) 11/21/18 04:45 Urine Blood NEGATIVE (NEGATIVE) 11/21/18 04:45 Urine Nitrate NEGATIVE (NEGATIVE) 11/21/18 04:45 Urine Bilirubin NEGATIVE (NEGATIVE) 11/21/18 04:45 Urine Urobilinogen 0.2 E.U./dL (0.2 - 1.0) 11/21/18 04:45 Ur Leukocyte Esterase NEGATIVE (NEGATIVE) 11/21/18 04:45 - Physical Exam Vitals and I&O: Vital Signs Temp 97.0 F 11/24/18 13:39 Pulse 68 11/24/18 13:39 Resp 17 11/24/18 13:39 BP 148/64 11/24/18 13:39 Pulse Ox 98 11/24/18 13:39 Intake & Output 11/23/18 11/24/18 11/24/18 18:59 06:59 18:59 Intake Total 1400 1110 1.667 Balance 1400 1110 1.667 Weight (lbs) 52.617 kg 53.206 kg Intake: Intake, IV Amount 1000 1000 1.667 Sodium Chloride 0.45% 1, 1000 1000 1.667 000 ml @ 100 mls/hr IV . Q10H [facility] Rx#:[id number] Oral 400 60 Other 50 Other: # Voids 3 2 # Bowel Movements 2 Stool Characteristics Soft Soft Weight Source Bedscale Bedscale Active Medications: Current Medications Acetaminophen (Tylenol) 650 mg PO DAILY [facility] Stop: 01/20/19 09:04 Last Admin: 09/10/19 08:28 Dose: 650 mg Amlodipine Besylate (Norvasc) 5 mg PO DAILY [facility] Stop: 01/21/19 10:14 Last Admin: 11/24/18 08:27 Dose: 5 mg Aspirin (Aspirin Chewable) 81 mg PO DAILY [facility] Stop: 01/20/19 08:59 Last Admin: 11/24/18 08:28 Dose: 81 mg Bisacodyl (Dulcolax 10 Mg Supp) 10 mg RC DAILY PRN PRN Reason: IF MOM INEFFECTIVE Stop: 01/20/19 08:33 Docusate Sodium (Colace) 100 mg PO BID PRN PRN Reason: Constipation Stop: 01/20/19 08:33 Glucagon (Glucagen) 1 mg IM PRN PRN PRN Reason: HYPOGLYCEMIA Stop: 01/20/19 09:02 Sodium Chloride (Nacl 0.45%) 1,000 mls @ 100 mls/hr IV .Q10H [facility] Stop: 01/19/19 22:12 Last Admin: 11/24/18 07:53 Dose: 100 mls/hr Ceftriaxone Sodium 1 gm/ (Sodium Chloride) 50 mls @ 100 mls/hr IV DAILY@2100 [facility] Stop: 01/19/19 22:14 Last Admin: 11/23/18 21:10 Dose: 100 mls/hr Insulin Human Lispro (Humalog Insulin Sliding Scale) 0 units SUBQ DAILY [facility]; Protocol Stop: 01/20/19 08:59 Last Admin: 11/24/18 08:28 Dose: Not Given Magnesium Hydroxide (Milk Of Magnesia) 30 ml PO HS PRN PRN Reason: GI DISTRESS Stop: 01/20/19 08:33 Valproate Sodium (Depakene) 250 mg PO DAILY [facility]; Protocol Stop: 01/20/19 08:59 Last Admin: 11/24/18 08:27 Dose: 250 mg Physical Exam: Patient has weakness, adult failure to thrive. General: weak, demented, NAD HEENT: NC/AT, other Neck: Supple, No JVD Lungs: CTAB Cardiovascular: RRR, Normal S1, Normal S2 Abdomen: soft, non-tender, tender Extremities: clear Neurological: no change Internal Medicine Assmt/Plan - Assessment Assessment: Adult failure to thrive. Diabetes Mellitus type 2. UTI. Weakness. Loss of appetite. Lactic acidosis. Left lower lobe pneumonia. Dementia. Hypertension. Hyperlipidemia. Mild Anemia. DNR. - Plan Plan: Continuation of care. Monitor Labs- CBC, CMP, Monitor Hemoglobin levels. Continue present meds as directed. Monitor vitals, continue B/P meds as directed. Accu-check daily, Continue Insulin coverage. Respiratory treatments and Pulmonary support prn. Supplemental Oxygen prn. Aspiration precaution. Deep suctioning prn. Monitor Diet/Nutritional support. Monitor mental status progression. Monitor behavioral health status. Pain Management. Physical therapy. Occupational therapy. Safety precaution. Supportive care. Fall precaution, frequent nursing rounds, and as needed restraints to prevent fall. Continue collaborating with consulting specialists, case management and nursing team. Will Monitor patient and continue present care management. Nutritional Asmnt/Malnutr-PDOC - Dietary Evaluation Malnutrition Findings (Please click <Entered> for more info): Nutritional Asmnt/Malnutrition Start: 11/21/18 10: 06 Text: Status: Complete Freq: Protocol: Document 11/21/18 10:10 ARCHIE (Rec: 11/21/18 10:28 ARCHIE HWANG- FNS1) Nutritional Asmnt/Malnutrition Patient General Information Nutritional Screening High Risk Consult Diagnosis Failure to thrive, elevated lactic acid, hypokalemia Pertinent Medical Hx/Surgical Hx diabetes, osteoarthritis, dementia Subjective Information Dietary Consult received for " No appetite to eat, diabetic". Patient was admitted from SNF due to weakness and failure to thrive. Primary language Cantonese. Patient refusing some meals, but ate breafkast today without difficulty, per RN note. In bed at time of visit; nutrition education not appropriate at this time. Current Diet Order/ Nutrition Support [address] [facility] Patient / S.O Not Indicated Pertinent Medications dulcolax, colace, glucagon, humalog, MOM, Metformin Pertinent Labs (11/20) K 3.3 Nutritional Hx/Data Height 1.55 m Height (Calculated Centimeters) 154.9 Current Weight (lbs) 52.617 kg Weight (Calculated Kilograms) 52.6 Weight (Calculated Grams) 21910.7 [place] Body Weight 112 % [place] Body Weight 103 Body Mass Index (BMI) 21.9 Recent Weight Change No Weight Status Approriate GI Symptoms GI Symptoms None Difficult in: None Food Allergies No Cultural/Ethnic/Yazidi Belief none indicated Usual diet at home unknown Skin Integrity/Comment: Heri 14, Bilateral lower buttocks black discoloration Current %PO Negligible < 25% Estimated Nutritional Goals BEE in Kcals: Using Current wt Calories/Kcals/Kg 52.7kg CBW Kcals Calculated ~5671-1416 kcal/day (25-30 kcal/kg) Protein: Using Current wt Protein g/k-1.2 gm/kg Protein Calculated ~50-65 gm/day Fluid: ml ~8478-2012 ml/day (1 ml/kcal) Nutritional Problem 1. Problem Problem Inadequate oral intake related to Etiology possible poor appetite, refusing meals aeb Signs/Symptoms: PO <25% of meals Intervention/Recommendation Comments 1. Continue 60 gm CCHO diet as tolerated by patient. 2. Encourage oral intake of meals. 3. Add Glucerna TID to supplement calories/protein due to FTT. Expected Outcomes/Goals Expected Outcomes/Goals Oral intake >75% if meals, weight stable, nutrition related labs WNL F/U MR 11/24-
--- NOTE | 2018-11-24 17:28 | Infectious Disease Prog Note ---
Infectious Disease Subjective - Review of Systems Service Date: 11/24/18 Events since last encounter: cc pn hpi cxr shows infiltrate improved ros no fever uo.e vss chest claer abd soft ext pulse Vital Signs - 24 hr 11/23/18 11/24/18 11/24/18 20:00 00:00 04:00 Temp 97.3 F 97.5 F 97.5 F HR 72 68 72 RR 20 18 18 BP 156/63 159/75 144/69 O2 Sat % 97 99 98 11/24/18 11/24/18 11/24/18 08:00 08:27 12:00 Temp 97.0 F 97.0 F HR 73 73 68 RR 17 17 BP 144/70 144/70 148/64 O2 Sat % 97 98 11/24/18 11/24/18 11/24/18 13:39 16:00 16:37 Temp 97.0 F 96.7 F HR 68 78 RR 17 17 BP 148/64 177/88 142/68 O2 Sat % 98 98 Microbiology 11/20/18 18:30 Blood - Preliminary NO GROWTH AFTER 48 HOURS 11/20/18 18:15 Blood - Preliminary NO GROWTH AFTER 48 HOURS 11/21/18 04:45 Urine,Catheterized Urine Culture - Final 11/20/18 18:20 Nares - Final NO MRSA ISOLATED Diagnoses TYPE 2 DIABETES MELLITUS WITHOUT COMPLICATIONS (11/20/18) ACIDOSIS (11/20/18) PNEUMONIA, UNSPECIFIED ORGANISM (11/20/18) URINARY TRACT INFECTION, SITE NOT SPECIFIED (11/20/18) WEAKNESS (11/20/18) ADULT FAILURE TO THRIVE (11/20/18) DO NOT RESUSCITATE (11/20/18) Current Medications Acetaminophen (Tylenol) 650 mg PO DAILY [facility] Stop: 01/20/19 09:04 Last Admin: 11/24/18 08:28 Dose: 650 mg Amlodipine Besylate (Norvasc) 5 mg PO DAILY [facility] Stop: 01/21/19 10:14 Last Admin: 11/24/18 08:27 Dose: 5 mg Aspirin (Aspirin Chewable) 81 mg PO DAILY [facility] Stop: 01/20/19 08:59 Last Admin: 11/24/18 08:28 Dose: 81 mg Bisacodyl (Dulcolax 10 Mg Supp) 10 mg RC DAILY PRN PRN Reason: IF MOM INEFFECTIVE Stop: 01/20/19 08:33 Docusate Sodium (Colace) 100 mg PO BID PRN PRN Reason: Constipation Stop: 01/20/19 08:33 Glucagon (Glucagen) 1 mg IM PRN PRN PRN Reason: HYPOGLYCEMIA Stop: 01/20/19 09:02 Sodium Chloride (Nacl 0.45%) 1,000 mls @ 100 mls/hr IV .Q10H [facility] Stop: 01/19/19 22:12 Last Admin: 11/24/18 16:06 Dose: 100 mls/hr Ceftriaxone Sodium 1 gm/ (Sodium Chloride) 50 mls @ 100 mls/hr IV DAILY@2100 [facility] Stop: 01/19/19 22:14 Last Admin: 11/23/18 21:10 Dose: 100 mls/hr Insulin Human Lispro (Humalog Insulin Sliding Scale) 0 units SUBQ DAILY [facility]; Protocol Stop: 01/20/19 08:59 Last Admin: 11/24/18 08:28 Dose: Not Given Magnesium Hydroxide (Milk Of Magnesia) 30 ml PO HS PRN PRN Reason: GI DISTRESS Stop: 01/20/19 08:33 Valproate Sodium (Depakene) 250 mg PO DAILY [facility]; Protocol Stop: 01/20/19 08:59 Last Admin: 11/24/18 08:27 Dose: 250 mg Subjective: cc pneumonia/old cva hpi- cx negative on iv abx ros nofevr o.e vs chets vesicular abd soft ext pulse Vital Signs - 24 hr 11/22/18 11/22/18 11/23/18 18:43 20:00 00:00 Temp 97 F 96.8 F 97.2 F HR 80 77 73 RR 20 18 18 BP 161/75 144/66 172/85 O2 Sat % 97 96 97 11/23/18 11/23/18 11/23/18 04:00 08:00 08:17 Temp 97.0 F 97.8 F HR 88 74 74 RR 18 18 BP 171/71 188/74 188/74 O2 Sat % 95 98 11/23/18 11/23/18 11:40 15:00 Temp 97.2 F 97.9 F HR 73 71 RR 18 18 BP 182/74 144/84 O2 Sat % 99 97 Microbiology 11/20/18 18:30 Blood - Preliminary NO GROWTH AFTER 48 HOURS 11/20/18 18:15 Blood - Preliminary NO GROWTH AFTER 48 HOURS 11/21/18 04:45 Urine,Catheterized Urine Culture - Final 11/20/18 18:20 Nares - Final NO MRSA ISOLATED Laboratory Results - last 24 hr 11/23/18 11/23/18 04:45 04:45 Sodium 139 Potassium 3.2 L Chloride 106 Carbon Dioxide 24.7 Anion Gap 11.5 BUN 14 Creatinine 0.6 Est GFR ( Amer) TNP Est GFR (Non-Af Amer) TNP BUN/Creatinine Ratio 23.3 Glucose 142 H Whole Bld Lactic Acid 0.71 Calcium 8.8 Diagnoses TYPE 2 DIABETES MELLITUS WITHOUT COMPLICATIONS (11/20/18) ACIDOSIS (11/20/18) PNEUMONIA, UNSPECIFIED ORGANISM (11/20/18) URINARY TRACT INFECTION, SITE NOT SPECIFIED (11/20/18) WEAKNESS (11/20/18) ADULT FAILURE TO THRIVE (11/20/18) DO NOT RESUSCITATE (11/20/18) Current Medications Acetaminophen (Tylenol) 650 mg PO DAILY [facility] Stop: 01/20/19 09:04 Last Admin: 11/23/18 08:17 Dose: 650 mg Amlodipine Besylate (Norvasc) 5 mg PO DAILY [facility] Stop: 01/21/19 10:14 Last Admin: 11/23/18 08:17 Dose: 5 mg Aspirin (Aspirin Chewable) 81 mg PO DAILY [facility] Stop: 01/20/19 08:59 Last Admin: 11/23/18 08:18 Dose: 81 mg Bisacodyl (Dulcolax 10 Mg Supp) 10 mg RC DAILY PRN PRN Reason: IF MOM INEFFECTIVE Stop: 01/20/19 08:33 Docusate Sodium (Colace) 100 mg PO BID PRN PRN Reason: Constipation Stop: 01/20/19 08:33 Glucagon (Glucagen) 1 mg IM PRN PRN PRN Reason: HYPOGLYCEMIA Stop: 01/20/19 09:02 Sodium Chloride (Nacl 0.45%) 1,000 mls @ 100 mls/hr IV .Q10H [facility] Stop: 01/19/19 22:12 Last Admin: 11/23/18 09:29 Dose: 100 mls/hr Ceftriaxone Sodium 1 gm/ (Sodium Chloride) 50 mls @ 100 mls/hr IV DAILY@2100 [facility] Stop: 01/19/19 22:14 Last Infusion: 11/22/18 21:52 Dose: Infused Insulin Human Lispro (Humalog Insulin Sliding Scale) 0 units SUBQ DAILY [facility]; Protocol Stop: 01/20/19 08:59 Last Admin: 11/23/18 08:18 Dose: Not Given Magnesium Hydroxide (Milk Of Magnesia) 30 ml PO HS PRN PRN Reason: GI DISTRESS Stop: 01/20/19 08:33 Valproate Sodium (Depakene) 250 mg PO DAILY [facility]; Protocol Stop: 01/20/19 08:59 Last Admin: 11/23/18 08:18 Dose: 250 mg Infectious Disease Objective - Results Result Diagrams: 11/20/18 18:15 11/23/18 04:45 Recent Labs: Laboratory Last Values WBC 7.2 Th/cmm (4.8-10.8) 11/20/18 18:15 RBC 3.04 Mil/cmm (3.80-5.20) L 11/20/18 18:15 Hgb 10.9 gm/dL (12-16) L 11/20/18 18:15 Hct 29.4 % (41.0-60) L 11/20/18 18:15 MCV 96.5 fl (81-100) 11/20/18 18:15 MCH 35.7 pg (27.0-31.0) H 11/20/18 18:15 MCHC Differential 37.0 pg (28.0-36.0) H 11/20/18 18:15 RDW 16.4 % (11.5-20.0) 11/20/18 18:15 Plt Count 345 Th/cmm (150-400) 11/20/18 18:15 MPV 7.7 fl 11/20/18 18:15 Neutrophils % 70.2 % (40.0-80.0) 11/20/18 18:15 Lymphocytes % 22.3 % (20.0-50.0) 11/20/18 18:15 Monocytes % 4.9 % (2.0-10.0) 11/20/18 18:15 Eosinophils % 2.1 % (0.0-5.0) 11/20/18 18:15 Basophils % 0.5 % (0.0-2.0) 11/20/18 18:15 PT 8.9 SECONDS (9.5-11.5) L 11/20/18 18:15 INR < 0.50 (0.5-1.4) L 11/20/18 18:15 PTT (Actin FS) 23.1 SECONDS (26.0-38.0) L 11/20/18 18:15 Sodium 139 mEq/L (136-145) 11/23/18 04:45 Potassium 3.2 mEq/L (3.5-5.1) L 11/23/18 04:45 Chloride 106 mEq/L (98-107) 11/23/18 04:45 Carbon Dioxide 24.7 mEq/L (21.0-31.0) 11/23/18 04:45 Anion Gap 11.5 (7.0-16.0) 11/23/18 04:45 BUN 14 mg/dL (7-25) 11/23/18 04:45 Creatinine 0.6 mg/dL (0.6-1.2) 11/23/18 04:45 Est GFR ( Amer) TNP 11/23/18 04:45 Est GFR (Non-Af Amer) TNP 11/23/18 04:45 BUN/Creatinine Ratio 23.3 11/23/18 04:45 Glucose 142 mg/dL (70-105) H 11/23/18 04:45 POC Glucose 123 MG/DL (70 - 105) H 11/22/18 07:41 Whole Bld Lactic Acid 0.71 mmol/L (0.60-1.99) 11/23/18 04:45 Calcium 8.8 mg/dL (8.6-10.3) 11/23/18 04:45 Total Bilirubin 0.5 mg/dL (0.3-1.0) 11/20/18 18:15 AST 15 U/L (13-39) 11/20/18 18:15 ALT 14 U/L (7-52) 11/20/18 18:15 Alkaline Phosphatase 111 U/L (34-104) H 11/20/18 18:15 Creatine Kinase 27 U/L (30-223) L 11/20/18 18:15 Troponin I < 0.01 ng/mL (0.01-0.05) L 11/20/18 18:15 Total Protein 7.3 gm/dL (6.0-8.3) 11/20/18 18:15 Albumin 4.2 gm/dL (3.7-5.3) 11/20/18 18:15 Globulin 3.1 gm/dL 11/20/18 18:15 Albumin/Globulin Ratio 1.4 (1.0-1.8) 11/20/18 18:15 Amylase 62 U/L (29-103) 11/20/18 18:15 Lipase 30 U/L (11-82) 11/20/18 18:15 Urine Source CATH 11/21/18 04:45 Urine Color YELLOW 11/21/18 04:45 Urine Clarity CLEAR (CLEAR) 11/21/18 04:45 Urine pH 6.5 (4.6 - 8.0) 11/21/18 04:45 Ur Specific [place] 1.010 (1.005-1.030) 11/21/18 04:45 Urine Protein NEGATIVE mg/dL (NEGATIVE) 11/21/18 04:45 Urine Glucose (UA) NEGATIVE mg/dL (NEGATIVE) 11/21/18 04:45 Urine Ketones NEGATIVE mg/dL (NEGATIVE) 11/21/18 04:45 Urine Blood NEGATIVE (NEGATIVE) 11/21/18 04:45 Urine Nitrate NEGATIVE (NEGATIVE) 11/21/18 04:45 Urine Bilirubin NEGATIVE (NEGATIVE) 11/21/18 04:45 Urine Urobilinogen 0.2 E.U./dL (0.2 - 1.0) 11/21/18 04:45 Ur Leukocyte Esterase NEGATIVE (NEGATIVE) 11/21/18 04:45 - Physical Exam Vitals and I&O: Vital Signs Temp 96.7 F 11/24/18 16:00 Pulse 78 11/24/18 16:00 Resp 17 11/24/18 16:00 BP 142/68 11/24/18 16:37 Pulse Ox 98 11/24/18 16:00 Intake & Output 11/23/18 11/24/18 11/24/18 18:59 06:59 18:59 Intake Total 1400 1110 823.334 Balance 1400 1110 823.334 Weight (lbs) 52.617 kg 53.206 kg Intake: Intake, IV Amount 1000 1000 823.334 Sodium Chloride 0.45% 1, 1000 1000 823.334 000 ml @ 100 mls/hr IV . Q10H [facility] Rx#:[id number] Oral 400 60 Other 50 Other: # Voids 3 2 # Bowel Movements 2 Stool Characteristics Soft Soft Weight Source Bedscale Bedscale Active Medications: Current Medications Acetaminophen (Tylenol) 650 mg PO DAILY [facility] Stop: 01/20/19 09:04 Last Admin: 11/24/18 08:28 Dose: 650 mg Amlodipine Besylate (Norvasc) 5 mg PO DAILY [facility] Stop: 01/21/19 10:14 Last Admin: 11/24/18 08:27 Dose: 5 mg Aspirin (Aspirin Chewable) 81 mg PO DAILY [facility] Stop: 01/20/19 08:59 Last Admin: 11/24/18 08:28 Dose: 81 mg Bisacodyl (Dulcolax 10 Mg Supp) 10 mg RC DAILY PRN PRN Reason: IF MOM INEFFECTIVE Stop: 01/20/19 08:33 Docusate Sodium (Colace) 100 mg PO BID PRN PRN Reason: Constipation Stop: 01/20/19 08:33 Glucagon (Glucagen) 1 mg IM PRN PRN PRN Reason: HYPOGLYCEMIA Stop: 01/20/19 09:02 Sodium Chloride (Nacl 0.45%) 1,000 mls @ 100 mls/hr IV .Q10H [facility] Stop: 01/19/19 22:12 Last Admin: 11/24/18 16:06 Dose: 100 mls/hr Ceftriaxone Sodium 1 gm/ (Sodium Chloride) 50 mls @ 100 mls/hr IV DAILY@2100 [facility] Stop: 01/19/19 22:14 Last Admin: 11/23/18 21:10 Dose: 100 mls/hr Insulin Human Lispro (Humalog Insulin Sliding Scale) 0 units SUBQ DAILY [facility]; Protocol Stop: 01/20/19 08:59 Last Admin: 11/24/18 08:28 Dose: Not Given Magnesium Hydroxide (Milk Of Magnesia) 30 ml PO HS PRN PRN Reason: GI DISTRESS Stop: 01/20/19 08:33 Valproate Sodium (Depakene) 250 mg PO DAILY [facility]; Protocol Stop: 01/20/19 08:59 Last Admin: 11/24/18 08:27 Dose: 250 mg Infectious Disease Assmt/Plan - Problem List Patient Problems: All Active Problems POOR ORAL INTAKE AND WEAKNESS (Acute) Nutritional Asmnt/Malnutr-PDOC - Dietary Evaluation Malnutrition Findings (Please click <Entered> for more info): Nutritional Asmnt/Malnutrition Start: 11/21/18 10: 06 Text: Status: Complete Freq: Protocol: Document 11/21/18 10:10 ARCHIE (Rec: 11/21/18 10:28 ARCHIE JAIDEN- [email or web address]) Nutritional Asmnt/Malnutrition Patient General Information Nutritional Screening High Risk Consult Diagnosis Failure to thrive, elevated lactic acid, hypokalemia Pertinent Medical Hx/Surgical Hx diabetes, osteoarthritis, dementia Subjective Information Dietary Consult received for " No appetite to eat, diabetic". Patient was admitted from SNF due to weakness and failure to thrive. Primary language Cantonese. Patient refusing some meals, but ate breafkast today without difficulty, per RN note. In bed at time of visit; nutrition education not appropriate at this time. Current Diet Order/ Nutrition Support 60 gm CCHO Patient / S.O Not Indicated Pertinent Medications dulcolax, colace, glucagon, humalog, MOM, Metformin Pertinent Labs (11/20) K 3.3 Nutritional Hx/Data Height 1.55 m Height (Calculated Centimeters) 154.9 Current Weight (lbs) 52.617 kg Weight (Calculated Kilograms) 52.6 Weight (Calculated Grams) 59386.7 [place] Body Weight 112 % [place] Body Weight 103 Body Mass Index (BMI) 21.9 Recent Weight Change No Weight Status Approriate GI Symptoms GI Symptoms None Difficult in: None Food Allergies No Cultural/Ethnic/Catholic Belief none indicated Usual diet at home unknown Skin Integrity/Comment: Heri 14, Bilateral lower buttocks black discoloration Current %PO Negligible < 25% Estimated Nutritional Goals BEE in Kcals: Using Current wt Calories/Kcals/Kg 52.7kg CBW Kcals Calculated ~7047-2650 kcal/day (25-30 kcal/kg) Protein: Using Current wt Protein g/k-1.2 gm/kg Protein Calculated ~50-65 gm/day Fluid: ml ~0430-4615 ml/day (1 ml/kcal) Nutritional Problem 1. Problem Problem Inadequate oral intake related to Etiology possible poor appetite, refusing meals aeb Signs/Symptoms: PO <25% of meals Intervention/Recommendation Comments 1. Continue 60 gm CCHO diet as tolerated by patient. 2. Encourage oral intake of meals. 3. Add Glucerna TID to supplement calories/protein due to FTT. Expected Outcomes/Goals Expected Outcomes/Goals Oral intake >75% if meals, weight stable, nutrition related labs WNL F/U MR 11/24-
[2018-11-24] MEDS: cefTRIAXone 1 GM in Sodium Chloride 0.9% 50 ML IV SCH (20:00)
[2018-11-25] MEDS: Sodium Chloride 0.45% 1,000 ML IV SCH (02:08)
[2018-11-25] MEDS: Aspirin 81mg Chewable Tab PO SCH (09:10)
[2018-11-25] MEDS: INSULIN LISPRO SLIDING SCALE 100 UNITS/ML UNIT SUBQ SCH (09:15)
== END 2018-11-25 14:45 | DRG 689 ==
LOC: ER 17:52 → MSI 20:15
PROVIDERS: ADMIT Internal Medicine; ATTEND Internal Medicine
DX: N39.0 Urinary tract infection, site not specified (principal); J18.1 Lobar pneumonia, unspecified organism; E87.2 Acidosis; J90 Pleural effusion, not elsewhere classified; Z66 Do not resuscitate; I10 Essential (primary) hypertension; R62.7 Adult failure to thrive; E78.5 Hyperlipidemia, unspecified; K21.9 Gastro-esophageal reflux disease without esophagitis; F03.90 Unspecified dementia, unspecified severity, without behavioral disturbance, psychotic disturbance, mood disturbance, and anxiety; E11.65 Type 2 diabetes mellitus with hyperglycemia; E87.6 Hypokalemia; F20.9 Schizophrenia, unspecified; K27.9 Peptic ulcer, site unspecified, unspecified as acute or chronic, without hemorrhage or perforation; G40.909 Epilepsy, unspecified, not intractable, without status epilepticus; E86.0 Dehydration; D64.9 Anemia, unspecified; Z86.73 Personal history of transient ischemic attack (TIA), and cerebral infarction without residual deficits; Z68.22 Body mass index [BMI] 22.0-22.9, adult
CPT/HCPCS: 36415-UA; 71045-TC; 80048-TC; 80053-TC; 81003-TC; 82150-TC; 82550-TC; 82948-90; 83605; 83690-TC; 84484-TC; 85025-TC; 85610-TC; 85730-TC; 87086-90; 93005; J0696; J7030; Z7610